=== PATIENT | female | born 1980 | race Caucasian/White ===

== ENCOUNTER 2017-08-02 07:00 | Observation (INO) | payer MEDICAID ==
[~2017-08-02] VITALS: Ht 170.2 cm; Wt 65.0 kg
[~2017-08-02 07:00] MED LIST: MACR100C PO; PREN0.01 PO; ZOFR4TAB3 SL
[2017-08-02 07:07] VITALS: BP 138/82; PULSE 73; RESP 16; TEMP 97.7; O2SAT 97
[2017-08-02] MEDS ORDERED: SODIUM CHLOR 0.9% 1000 ML INJ 1,000 ML IV ONE (07:29)
[2017-08-02 07:40] VITALS: O2SAT 100
--- NOTE | 2017-08-02 07:44 | PD ---
HPI Chief Complaint: Dizziness Time Seen by Provider: 07:29 Travel History International Travel<30 days: No Contact w/Intl Traveler<30days: No Traveled to known affect area: No History of Present Illness HPI 37 years old female complaining of left side of weakness. Patient states that she has left-sided neck pain left shoulder pain for the past 2 weeks. Patient has been taking ibuprofen for the pain. Patient states the pain is sharp pain burning pain radiated to the left side of the base of the skull. Patient denies any recent injury to the neck area or shoulder area. Patient states that she woke up this morning with left-sided weakness. Patient states that she was walking and leaning over to the left side. Patient states that she has trouble opening the door with her left hand. Patient states that she was driving with her right hand. Patient states that she has mild aching headache. Patient states that she has increasing blurred vision on the right eye. Patient denies any chest pain or shortness of breath. Patient denies abdominal pain. Patient states that the weakness including left arm and left leg. Patient denies any numbness. Patient denies history hypertension, diabetes, hyperlipidemia. Patient with smoking many years ago. Patient denies any alcohol or illicit drug abuse. Patient denies any history of TIA or CVA. Patient is not on any control pills. Patient states that she went to bed around 11:00 last night with normal strength of the extremity. PFSH Past Medical History Hiatal Hernia: Yes ?: Not : 6 Para: 3 Miscarriage: 0 : 2 Past Surgical History Abdominal Surgery: Yes (umbilical HERNIA REPAIR) Other Surgery: Yes Social History Alcohol Use: No Tobacco Use: No Substance Use: No Allergies-Medications (Allergen,Severity, Reaction): Coded Allergies: amoxicillin (Verified Allergy, Severe, Rash, 08/02/17) clarithromycin (Verified Allergy, Severe, Hives, 08/02/17) penicillin G (Verified Allergy, Severe, Rash, 08/02/17) Reported Meds & Prescriptions Reported Meds & Active Scripts Active No Active Prescriptions or Reported Medications Review of Systems General / Constitutional: No: Fever Eyes: No: Visual changes HENT: Positive: Neck Pain, No: Headaches Cardiovascular: No: Chest Pain or Discomfort Respiratory: No: Shortness of Breath Gastrointestinal: No: Abdominal Pain Genitourinary: No: Dysuria Musculoskeletal: No: Pain Skin: No Rash Neurologic: Positive: Weakness Psychiatric: No: Depression Endocrine: No: Polydipsia Hematologic/Lymphatic: No: Easy Bruising Physical Exam Narrative GENERAL: Well-nourished, well-developed patient. SKIN: Focused skin assessment warm/dry. HEAD: Normocephalic. EYES: No scleral icterus. No injection or drainage. Pupils 2 mm equal reactive. NECK: Supple, trachea midline. No JVD or lymphadenopathy. Mild tenderness in palpation left-sided neck area and left shoulder pad area. CARDIOVASCULAR: Regular rate and rhythm without murmurs, gallops, or rubs. RESPIRATORY: Breath sounds equal bilaterally. No accessory muscle use. GASTROINTESTINAL: Abdomen soft, non-tender, nondistended. MUSCULOSKELETAL: No cyanosis, or edema. BACK: Nontender without obvious deformity. No CVA tenderness. Neurologic exam: Patient awake alert oriented 3. Patient has weakness of left arm and left leg. Patient is able to lift left arm left leg off the bed. Patient has drifting of the left arm. Sensory function intact. Visual field intact. Deep tendon reflexes 2+ and equal. Negative Babinski. Data Data Last Documented VS Vital Signs Date Time Temp Pulse Resp B/P (MAP) Pulse Ox O2 Delivery O2 Flow Rate FiO2 08/02/17 07:40 100 Nasal Cannula 2.00 08/02/17 07:07 97.7 73 16 138/82 (100) Orders Orders Diet Npo (08/02/17 Breakfast) Activity Bed Rest (08/02/17 ) Electrocardiogram (08/02/17 ) Prothrombin Time / Inr (Pt) (08/02/17 07:29) Act Partial Throm Time (Ptt) (08/02/17 07:29) Complete Blood Count With Diff (08/02/17 07:29) Fibrinogen (08/02/17 07:29) Ua Includes Microscopic (08/02/17 07:29) Type And Screen (08/02/17 07:29) Ct Brain W/O Iv Contrast(Rout) (08/02/17 ) Chest, Single Ap (08/02/17 ) Cta Brain W Iv Contrast W 3d (08/02/17 07:29) Cta Neck W Iv Contrast W 3d (08/02/17 07:29) Blood Glucose (08/02/17 07:29) Ecg Monitoring (08/02/17 07:29) Neuro Checks Q2HX12,Q4H (08/02/17 07:29) Nursing Bedside Swallow Assess .ONCE (08/02/17 07:29) Iv Access Insert/Monitor (08/02/17 07:29) NPO (08/02/17 07:29) Oximetry (08/02/17 07:29) Resp Oxygen Nc Stroke (08/02/17 ) Sodium Chlor 0.9% 1000 Ml Inj (Ns 1000 M (08/02/17 07:29) Cath For Specimen (08/02/17 07:29) Comprehensive Metabolic Panel (08/02/17 07:44) MDM Medical Decision Making Medical Screen Exam Complete: Yes Emergency Medical Condition: Yes Interpretation(s) EKG shows sinus rhythm nonspecific ST-T wave change. Differential Diagnosis Differential diagnosis including TIA, CVA, neuropathy. Narrative Course 37 years old female with left arm left leg weakness. Patient woke up this morning with that. Last seen normal was 11:00 last night. Normal saline solution 100 cc an hour. Head of bed flat. O2 2 L nasal cannula. Scripts No Active Prescriptions or Reported Meds Henry Stern MD August 02, 2017 07:44
[2017-08-02 07:58] LABS: AUTOMATED NEUTROPHIL # 4.5 TH/MM3 (1.8-7.7); BASOPHIL # 0.1 TH/MM3 (0-0.2); BASOPHIL % 0.8 % (0.0-2.0); EOSINOPHIL # 0.1 TH/MM3 (0-0.4); EOSINOPHIL % 1.5 % (0.0-4.0); HEMATOCRIT 43.5 % (35.0-46.0); HEMOGLOBIN 14.8 GM/DL (11.6-15.3); LYMPH % 30.7 % (9.0-44.0); LYMPHOCYTE # 2.3 TH/MM3 (1.0-4.8); MEAN CELL VOLUME 79.5 FL (80.0-100.0); MEAN CORPUSCULAR HEMOGLOBIN 27.1 PG (27.0-34.0); MEAN CORPUSCULAR HGB CONC 34.1 % (32.0-36.0); MEAN PLATELET VOLUME 7.3 FL (7.0-11.0); MONO % 5.7 % (0.0-8.0); MONOCYTE # 0.4 TH/MM3 (0-0.9); NEUT % 61.3 % (16.0-70.0); PLATELET COUNT 233 TH/MM3 (150-450); RED BLOOD COUNT 5.47 MIL/MM3 (4.00-5.30); RED CELL DISTRIBUTION WIDTH 13.3 % (11.6-17.2); WHITE BLOOD COUNT 7.4 TH/MM3 (4.0-11.0)
[2017-08-02 08:11] LABS: PROTHROMBIN TIME - PATIENT 10.2 SEC (9.8-11.6)
--- NOTE | 2017-08-02 08:11 | RADRPT ---
EXAM DATE: 08/02/2017 8:08 AM EDT AGE/SEX: 37 years / Female INDICATIONS: Stroke Alert CLINICAL DATA: This is the patient's initial encounter. Patient reports that signs and symptoms have been present for 1 day and indicates a pain score of 0/10. MEDICAL/SURGICAL HISTORY: None. None. COMPARISON: No prior [facility] exams available for comparison. FINDINGS: A single AP view of the chest demonstrates the lungs to be symmetrically aerated without evidence of mass, infiltrate or effusion. The cardiomediastinal contours are unremarkable. Osseous structures a re intact. CONCLUSION: No evidence of acute cardiopulmonary process. Electronically signed by: Manjeet Maguire MD 08/02/2017 8:10 AM EDT
[2017-08-02 08:13] LABS: ALBUMIN 3.9 GM/DL (3.4-5.0); AST (GOT) 13 U/L (15-37); BICARBONATE 26.1 MEQ/L (21.0-32.0); BLOOD UREA NITROGEN 13 MG/DL (7-18); CALCIUM 8.9 MG/DL (8.5-10.1); CHLORIDE 105 MEQ/L (98-107); CREATININE 0.77 MG/DL (0.50-1.00); GLOMERULAR FILTRATION RATE 85 ML/MIN (>89); GLUCOSE,RANDOM 105 MG/DL (74-106); SODIUM (NA) 141 MEQ/L (136-145)
[2017-08-02 08:14] LABS: ALT (GPT) 24 U/L (10-53)
[2017-08-02 08:16] LABS: ALKALINE PHOSPHATASE 64 U/L (45-117); TOTAL BILIRUBIN ADULT 0.5 MG/DL (0.2-1.0); TOTAL PROTEIN 7.3 GM/DL (6.4-8.2)
--- NOTE | 2017-08-02 08:34 | RADRPT ---
EXAM DATE: 08/02/2017 8:25 AM EDT AGE/SEX: 37 years / Female INDICATIONS: Left sided weakness and unsteady gait CLINICAL DATA: This is the patient's initial encounter. Patient reports that signs and symptoms have been present for 1 day and indicates a pain score of 0/10. MEDICAL/SURGICAL HISTORY: None. None. RADIATION DOSE: 36.37 CTDI (mGy) COMPARISON: No prior [facility] exams available for comparison. TECHNIQUE: CT of the head without contrast. Using automated exposure control and adjustment of the mA and/or kV according to patient size, radiation dose was kept as low as reasonably achievable to ob tain optimal diagnostic quality images. FINDINGS: Cerebrum: The ventricles are normal for age. No evidence of midline shift, mass lesion, hemorrhage o r acute infarction. No extraaxial fluid collections are seen. Posterior Fossa: The cerebellum and brainstem are intact. The 4th ventricle is midline. The cerebe llopontine angle is unremarkable. Extracranial: The visualized portion of the orbits is intact. Skull: The calvaria is intact. No evidence of skull fracture. CONCLUSION: 1. No acute intracranial abnormality. Electronically signed by: Amari Medina MD 08/02/2017 8:33 AM EDT
[2017-08-02] MEDS ORDERED: IODIXANOL 320 MG/ML 10 ML VIAL (for Rad CT) IVCONTRAST ONE (08:44)
--- NOTE | 2017-08-02 09:38 | RADRPT ---
EXAM DATE: 08/02/2017 9:31 AM EDT AGE/SEX: 37 years / Female INDICATIONS: Left sided weakness CLINICAL DATA: This is the patient's initial encounter. Patient reports that signs and symptoms have been present for 1 day and indicates a pain score of 0/10. MEDICAL/SURGICAL HISTORY: None. None. RADIATION DOSE: 27.20 CTDI (mGy) ; Combined studies COMPARISON: No prior [facility] exams available for comparison. TECHNIQUE: Volumetric scanning was performed using a multi-row detector CT scanner during bolus infu anna of 97 ml Visipaque 320 (iodixanol) nonionic water-soluble contrast as a cumulative dose for mul tiple exams. The data was post processed with a variety of visualization algorithms including full volume maximum intensity projection, multi-planar sliding thin slab reformation, curved planar reform ation, and surface rendering techniques. Using automated exposure control and adjustment of the mA a nd/or kV according to patient size, radiation dose was kept as low as reasonably achievable to obtain optimal diagnostic quality images. FINDINGS: There is excellent visualization of the major intracranial arteries out to the second-orde r branch vessels. There is no evidence for aneurysm, vessel truncation or stenosis, and no evidence for vascular malformation. There are patent bilateral posterior communicating arteries. CONCLUSION: 1. Unremarkable MRA of the brain. Electronically signed by: Anson Cordero MD 08/02/2017 9:37 AM EDT
[2017-08-02 10:20] VITALS: BP 114/74; PULSE 70; RESP 17; O2SAT 100
--- NOTE | 2017-08-02 11:23 | HHI.HP ---
[facility] Service Family Medicine Primary Care Physician Unknown Admission Diagnosis Diagnoses: International Travel<30 Days: No Contact w/Intl Traveler<30days: No Known Affected Area: No History of Present Illness 37-year-old female presents to the ED with left-sided weakness. Patient states that she woke up at 6:15 AM this morning with an unsteady gait. She reports that she was "walking strange" and felt that her "left side was off-balanced." She states that she felt like she "falling on her left side" and was very disoriented. She endorses weakness in left arm and left leg. She reports that she could not open the door knob. She states that her vision was hazy and fuzzy. She lives with her 16-year-old son who witnessed the event. She states that her son was saying that she was slurring her speech and was not making sense. She became very concerned and drove herself to the ED. She reports driving using only the right side of her body. She reports recently completing a ZPAC for a URI that started 2 weeks ago. She endorses watery, nonbloody diarrhea for the past few days. She also endorses dizziness and BUI associated with left-sided, shooting neck and shoulder pain for the past last 2 weeks. She states the last time she remember being normal was 11 PM before going to bed. She states that one year ago her PCP told her that she had high cholesterol. She denies hypertension diabetes, smoking, oral contraceptive use , prior strokes or MIs. She denies history of migraines or seizures. She denies nausea vomiting, shaking, loss of bowel/bladder control, biting tongue, numbness and tingling. She denies new medication and or illicit drug use. (Marcia Carrillo MD R1) History of Present Illness 37-year-old female presenting to the emergency department with apparent neurologic abnormality. She states that she woke up this morning and felt somewhat dizzy/lightheaded and noticed some left-sided weakness when she tried to get up and walk. She felt that she was leaning to the left and listing to the left while walking. She felt that her left arm and left leg were weaker than her right leg and this was very disorienting to her. She also states that her son told her that she was slurring her speech. She noticed that she was having difficulty grasping objects with her left hand as well. Her last known time of feeling normal was at 1130 on the night previous presenting to the hospital. -She endorses recent URI for which she was treated with a Z-Amador 2 weeks ago, she endorses some headache with left-sided neck pain -She denies chest pain or palpitations, she denies nausea or vomiting, she denies fevers or chills, she denies bowel changes, she denies tinnitus. (Anson London MD) Review of Systems Constitutional: DENIES: Fever, Weight loss, Chills Eyes: DENIES: Eye pain, Vision loss Ears, nose, mouth, throat: COMPLAINS OF: Tinnitus (slight ringing in her R ear ), DENIES: Hearing loss, Throat pain, Running Nose Respiratory: COMPLAINS OF: Cough (light coughing x 2 weeks ), DENIES: Shortness of breath Cardiovascular: DENIES: Chest pain, Palpitations Gastrointestinal: COMPLAINS OF: Diarrhea, DENIES: Abdominal pain, Bloody stools , Nausea, Vomiting Genitourinary: DENIES: Dysuria Musculoskeletal: COMPLAINS OF: Neck pain Integumentary: DENIES: Rash Neurologic: COMPLAINS OF: Abnormal gait, Headache, Localized weakness, Speech Problems, Poor Balance, DENIES: Paresthesias (Marcia Carrillo MD R1) Past Family Social History Past Medical History Depression Anxiety Past Surgical History L Foot surgery- 17 years ago Umbical hernia-6 years ago (Marcia Carrillo MD R1) Allergies: Coded Allergies: amoxicillin (Verified Allergy, Severe, Rash, 08/02/17) clarithromycin (Verified Allergy, Severe, Hives, 08/02/17) penicillin G (Verified Allergy, Severe, Rash, 08/02/17) Family History Mom- NM 36 or 37- at 42-Crohn's disease Dad-cirrhosis, HD- 50 Hyperlipidemia Social History Moved back from [place] two months ago Goes to the [facility] Lives with 16 yr old son Denies smoking Denies alcohol use Denies illicit drug use (Marcia Carrillo MD R1) Physical Exam Vital Signs Vital Signs Date Time Temp Pulse Resp B/P (MAP) Pulse Ox O2 Delivery O2 Flow Rate FiO2 08/02/17 10:20 70 17 114/74 (87) 100 Nasal Cannula 1.00 08/02/17 07:40 100 Nasal Cannula 2.00 08/02/17 07:40 100 Nasal Cannula 2.00 08/02/17 07:07 97.7 73 16 138/82 (100) 97 Physical Exam GENERAL: This is a well-nourished, well-developed patient, in no apparent distress. SKIN: No rashes, ecchymoses or lesions. Cool and dry. HEAD: Atraumatic. Normocephalic. No temporal or scalp tenderness. EYES: Pupils equal round and reactive. Extraocular motions intact. No scleral icterus. No injection or drainage. ENT: Nose without bleeding, purulent drainage or septal hematoma. Throat without erythema, tonsillar hypertrophy or exudate. Uvula midline. Airway patent. NECK: Trachea midline. No JVD or lymphadenopathy. Supple, nontender, no meningeal signs. CARDIOVASCULAR: Regular rate and rhythm without murmurs, gallops, or rubs. RESPIRATORY: Clear to auscultation. Breath sounds equal bilaterally. No wheezes , rales, or rhonchi. GASTROINTESTINAL: Abdomen soft, non-tender, nondistended. No hepato-splenomegaly , or palpable masses. No guarding. MUSCULOSKELETAL: Extremities without clubbing, cyanosis, or edema. No joint tenderness, effusion, or edema noted. No calf tenderness. Negative Homans sign bilaterally. NEUROLOGICAL: Awake and alert. Cranial nerves II through XII intact. Motor and sensory grossly within normal limits. Slight weakness in left arm, otherwise strength 5/5 in all other extremities. Normal speech. Negative Pronator dift test. Laboratory Laboratory Tests Test 08/02/17 07:10 White Blood Count 7.4 Red Blood Count 5.47 Hemoglobin 14.8 Hematocrit 43.5 Mean Corpuscular Volume 79.5 Mean Corpuscular Hemoglobin 27.1 Mean Corpuscular Hemoglobin Concent 34.1 Red Cell Distribution Width 13.3 Platelet Count 233 Mean Platelet Volume 7.3 Neutrophils (%) (Auto) 61.3 Lymphocytes (%) (Auto) 30.7 Monocytes (%) (Auto) 5.7 Eosinophils (%) (Auto) 1.5 Basophils (%) (Auto) 0.8 Neutrophils # (Auto) 4.5 Lymphocytes # (Auto) 2.3 Monocytes # (Auto) 0.4 Eosinophils # (Auto) 0.1 Basophils # (Auto) 0.1 CBC Comment DIFF FINAL Differential Comment Prothrombin Time 10.2 Prothromb Time International Ratio 1.0 Activated Partial Thromboplast Time 26.4 Fibrinogen 229 Blood Urea Nitrogen 13 Creatinine 0.77 Random Glucose 105 Total Protein 7.3 Albumin 3.9 Calcium Level 8.9 Alkaline Phosphatase 64 Aspartate Amino Transf (AST/SGOT) 13 Alanine Aminotransferase (ALT/SGPT) 24 Total Bilirubin 0.5 Sodium Level 141 Potassium Level 3.4 Chloride Level 105 Carbon Dioxide Level 26.1 Anion Gap 10 Estimat Glomerular Filtration Rate 85 (Marcia Carrillo MD R1) Physical Exam General: Well-developed female lying in bed, no obvious distress HEENT: PERRLA, cranial nerves II through XII intact, no obvious facial abnormality or asymmetry, speech is normal CV: Regular rate and rhythm without murmur Pulmonary: Clear to auscultation bilaterally Neuro: Awake and alert. Cranial nerves II through XII intact. Negative pronator drift. Normal cerebellar testing with hand flapping and heel to dc. 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 (Anson London MD) Result Diagram: 08/02/17 0710 08/02/17 0710 Septic Shock Reassessment Septic shock perfusion: reassessment completed (Marcia Carrillo MD R1) Caprini VTE Risk Assessment Caprini VTE Risk Assessment: No/Low Risk (score <= 1) Caprini Risk Assessment Model Point Value = 1 Point Value = 2 Point Value = 3 Point Value = 5 Age 41-60 Minor surgery BMI > 25 kg/m2 Swollen legs Varicose veins or History of unexplained or recurrent spontaneous Oral contraceptives or hormone replacement Sepsis (< 1 month) Serious lung disease, including pneumonia (< 1 month) Abnormal pulmonary function Acute myocardial infarction Congestive heart failure (< 1 month) History of inflammatory bowel disease Medical patient at bed rest Age 61-74 Arthroscopic surgery Major open surgery (> 45 min) Laparoscopic surgery (> 45 min) Malignancy Confined to bed (> 72 hours) Immobilizing plaster cast Central venous access Age >= 75 History of VTE Family history of VTE Factor V Leiden Prothrombin [id number] Lupus anticoagulant Anticardiolipin antibodies Elevated serum homocysteine Heparin-induced thrombocytopenia Other congenital or acquired thrombophilia Stroke (< 1 month) Elective arthroplasty Hip, pelvis, or leg fracture Acute spinal cord injury (< 1 month) Prophylaxis Regimen Total Risk Factor Score Risk Level Prophylaxis Regimen 0-1 Low Early ambulation 2 Moderate Order ONE of the following: *Sequential Compression Device (SCD) *Heparin 5000 units SQ BID 3-4 Higher Order ONE of the following medications: *Heparin 5000 units SQ TID *Enoxaparin/Lovenox 40 mg SQ daily (WT < 150 kg, CrCl > 30 mL/min) *Enoxaparin/Lovenox 30 mg SQ daily (WT < 150 kg, CrCl > 10-29 mL/min) *Enoxaparin/Lovenox 30 mg SQ BID (WT < 150 kg, CrCl > 30 mL/min) AND/OR *Sequential Compression Device (SCD) 5 or more Highest Order ONE of the following medications: *Heparin 5000 units SQ TID (Preferred with Epidurals) *Enoxaparin/Lovenox 40 mg SQ daily (WT < 150 kg, CrCl > 30 mL/min) *Enoxaparin/Lovenox 30 mg SQ daily (WT < 150 kg, CrCl > 10-29 mL/min) *Enoxaparin/Lovenox 30 mg SQ BID (WT < 150 kg, CrCl > 30 mL/min) AND *Sequential Compression Device (SCD) (Marcia Carrillo MD R1) Assessment and Plan Assessment and Plan 37-year-old female presents to the ED with left-sided weakness. Admitted for stroke workup. Code Status Full Code (Marcia Carrillo MD R1) Problem List: (1) TIA (transient ischemic attack) ICD Codes: G45.9 - Transient cerebral ischemic attack, unspecified Plan: Left-sided weakness most likely due to TIA Labs: WBC wnl CMP, slight hypokalemia at 3.4, LFTS wnl, random glucose of 105 Lipid panel pending A1c pending TSH pending UDS pending CXR negative Imaging: Echo 2D complete with doppler pending Head CT demonstrates no acute intracranial abnormality Neck CTA pending Head CTA unremarkable Brain MRI negative N.p.o. until patient passes bedside swallow test Normal saline 100mls/hr Aspirin 325 p.o. daily Neuro checks every 4 Cardiac monitoring and telemetry PT, OT consulted (2) Nutrition, metabolism, and development symptoms ICD Codes: R63.8 - Other symptoms and signs concerning food and fluid intake Plan: Diet: N.p.o. until patient passes bedside swallow test Fluid: 100mls/hr Neuro checks every 4, vitals every 4, monitor I's and O's Case management consulted (Marcia Carrillo MD R1) Problem List: (1) TIA (transient ischemic attack) ICD Codes: G45.9 - Transient cerebral ischemic attack, unspecified Plan: Left-sided weakness most likely due to TIA versus migraine variant versus seizure variant Labs: WBC wnl CMP, slight hypokalemia at 3.4, LFTS wnl, random glucose of 105 Lipid panel pending A1c pending TSH pending UDS pending CXR negative Imaging: Echo 2D complete with doppler pending Head CT demonstrates no acute intracranial abnormality Neck CTA pending Head CTA unremarkable Brain MRI negative N.p.o. until patient passes bedside swallow test Normal saline 100mls/hr Aspirin 325 p.o. daily Neuro checks every 4 Cardiac monitoring and telemetry PT, OT consulted (2) Nutrition, metabolism, and development symptoms ICD Codes: R63.8 - Other symptoms and signs concerning food and fluid intake Plan: Diet: N.p.o. until patient passes bedside swallow test Fluid: 100mls/hr Neuro checks every 4, vitals every 4, monitor I's and O's Case management consulted (Anson London MD) Physician Certification 2 Midnight Certification Type: Admission for Inpatient Services Order for Inpatient Services The services are ordered in accordance with Medicare regulations or non- Medicare payer requirements, as applicable. In the case of services not specified as inpatient-only, they are appropriately provided as inpatient services in accordance with the 2-midnight benchmark. Estimated LOS (days): 2 2 days is the estimated time the patient will need to remain in the hospital, assuming treatment plan goals are met and no additional complications. Post-Hospital Plan: Home (Marcia Carrillo MD R1) Marcia Carrillo MD R1 August 02, 2017 11:23 Anson London MD August 02, 2017 14:24
[2017-08-02] MEDS: SODIUM CHLORIDE 0.9% FLUSH 10 ML FLUSH IV FLUSH SCH ×2 (11:45→21:00)
[2017-08-02] MEDS ORDERED: SODIUM CHLORIDE 0.9% FLUSH 10 ML FLUSH IV FLUSH PRN ×2 (11:45→12:45)
--- NOTE | 2017-08-02 11:58 | RADRPT ---
EXAM DATE: 08/02/2017 11:52 AM EDT AGE/SEX: 37 years / Female INDICATIONS: Left sided weakness. CLINICAL DATA: This is the patient's initial encounter. Patient reports that signs and symptoms have been present for 1 day and indicates a pain score of 0/10. MEDICAL/SURGICAL HISTORY: None. Inguinal hernia repair. COMPARISON: [facility] [place], CT BRAIN W/O CONTRAST, 08/02/2017. . TECHNIQUE: Multiplanar, multisequence examination of the brain was performed without contrast. FINDINGS: Cerebrum: The ventricles are normal for age. No evidence of midline shift, mass lesion, hemorrhage or acute infarction. No extraaxial fluid collections are seen. The pituitary gland and suprasellar cistern are normal in configuration. White Matter: No significant signal abnormalities are seen in the white matter. Posterior Fossa: The cerebellum and brainstem are intact. The 4th ventricle is midline. The cerebel lopontine angle is unremarkable. The cerebellar tonsils are normal in position. Diffusion Imaging: No focal areas of restricted diffusion are seen. No evidence of acute infarction . Extracranial: The visualized portions of the orbits and paranasal sinuses are unremarkable. CONCLUSION: Negative MRI examination of the head. Electronically signed by: Víctor Corado MD 08/02/2017 11:57 AM EDT
[2017-08-02] MEDS ORDERED: SODIUM CHLORIDE 0.9% FLUSH 10 ML FLUSH IV FLUSH SCH (12:45)
[2017-08-02] MEDS ORDERED: GLUCAGON 1 MG/ML VIAL OTHER PRN (12:45)
[2017-08-02] MEDS ORDERED: DEXTROSE 50% IN WATER 50 ML VIAL(D50) IV PUSH PRN (12:45)
[2017-08-02] MEDS: SODIUM CHLOR 0.9% 1000 ML INJ 1,000 ML IV SCH (13:00)
[2017-08-02 13:24] LABS: BILIRUBIN, URINE NEG (NEG); BLOOD, URINE NEG (NEG); GLUCOSE,URINE NEG (NEG); KETONE, URINE NEG (NEG); MUCUS URINE FEW /lpf (OCC); NITRITE,URINE NEG (NEG); PH, URINE 6.5 (5.0-8.5); SQUAMOUS EPITHELIAL CELL URINE 1 /hpf (0-5); URINE COLOR YELLOW (YELLW/STRAW); URINE LEUKOCYTE ESTERASE NEG (NEG)
--- NOTE | 2017-08-02 14:00 | EKG ---
Date Performed: 08/02/2017 Time Performed: 07:22:19 PTAGE: 37 years EKG: Baseline artifact present Sinus rhythm probably NORMAL ECG NO PREVIOUS TRACING DOCTOR: Rashel Herron Interpretating Date/Time 08/02/2017 13:59:01
[2017-08-02] MEDS: ASPIRIN 325 MG TAB PO SCH (14:27)
[2017-08-02] MEDS: HEPARIN SODIUM - SQ 10,000 UNITS/ML VIAL SQ SCH ×2 (14:28→20:56)
[2017-08-02 16:00] VITALS: BP 127/78; PULSE 67; RESP 18; TEMP 98.6; O2SAT 98
[2017-08-02] MEDS: INSULIN ASPART SUPPLEMENTAL SCALE SQ SCH ×2 (17:00→21:00)
[2017-08-02 17:21] LABS: HEMOGLOBIN A1C 4.8 % (4.3-6.0)
[2017-08-02] MEDS ORDERED: ACETAMINOPHEN/HYDROcodone 325 MG/5 MG TAB PO PRN (19:00)
[2017-08-02 19:24] VITALS: BP 120/67; PULSE 79; RESP 18; TEMP 97.9; O2SAT 97
[2017-08-02 20:00] VITALS: PULSE 82
--- NOTE | 2017-08-02 20:10 | RADRPT ---
EXAM DATE: 08/02/2017 8:16 AM EDT AGE/SEX: 37 years / Female INDICATIONS: Left sided weakness CLINICAL DATA: This is the patient's initial encounter. Patient reports that signs and symptoms have been present for 1 day and indicates a pain score of 0/10. MEDICAL/SURGICAL HISTORY: None. None. RADIATION DOSE: 27.20 CTDI (mGy) ; Combined studies COMPARISON: No prior [facility] exams available for comparison. TECHNIQUE: Volumetric scanning was performed using a multirow detector CT scanner during bolus infus ion of 97 ml Visipaque 320 (iodixanol) nonionic water-soluble contrast as a cumulative dose for mult iple exams. The data was postprocessed with a variety of visualization algorithms including full-vo lume maximum intensity projection, multiplanar sliding thin-slab reformation, curved-planar reformati on, and surface-rendering techniques. Using automated exposure control and adjustment of the mA and/ or kV according to patient size, radiation dose was kept as low as reasonably achievable to obtain op timal diagnostic quality images. FINDINGS: Aortic Arch: There is two-vessel bovine type arch anatomy. No evidence of ostial narrowing Right Carotid: The common carotid artery is intact. The carotid bulb has a normal configuration wit hout ulceration or narrowing. Proximal cervical segment of the internal carotid artery is tortuous bu t otherwise patent. No significant flow-limiting stenosis. The external carotid artery is intact. Left Carotid: The common carotid artery is intact. The carotid bulb has a normal configuration with out ulceration or narrowing. The internal carotid artery lumen is smooth without stenosis. The exte rnal carotid artery is intact. Vertebrals: Dominant right vertebral artery. Diffusely small caliber left vertebral artery is not vi sualized beyond the mid cervical region and reconstitutes distally near the vertebrobasilar junction. General Findings: Lung apices are clear. Thyroid is unremarkable by CT. No significant adenopathy. Elevated flow velocities and ICA/CCA ratios have been found to correlate with increased degrees of ve ssel stenosis, calculated as percentage of diameter relative to a normal segment of distal ICA/CCA. CONCLUSION: 1. No significant carotid flow-limiting stenosis. 2. 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 Electronically signed by: Amari Medina MD 08/02/2017 8:08 PM EDT
[2017-08-02] MEDS: IBUPROFEN 400 MG TAB PO PRN (21:04)
[2017-08-03] VITALS (7 sets, daily range): BP systolic 108–118; BP diastolic 55–75; PULSE 58–70; RESP 18; TEMP 98.3–98.6; O2SAT 97–98
[2017-08-03] MEDS: SODIUM CHLOR 0.9% 1000 ML INJ 1,000 ML IV SCH ×2 (01:27→08:43)
[2017-08-03] MEDS: IBUPROFEN 400 MG TAB PO PRN (04:46)
[2017-08-03] MEDS: HEPARIN SODIUM - SQ 10,000 UNITS/ML VIAL SQ SCH ×2 (04:48→14:01)
[2017-08-03 07:41] LABS: CHOLESTEROL/ HDL RATIO 5.1 RATIO; HDL CHOLESTEROL 29.4 MG/DL (40.0-60.0)
[2017-08-03 07:44] LABS: HEMATOCRIT 37.6 % (35.0-46.0); HEMOGLOBIN 13.1 GM/DL (11.6-15.3); MEAN CELL VOLUME 79.9 FL (80.0-100.0); MEAN CORPUSCULAR HEMOGLOBIN 27.8 PG (27.0-34.0); MEAN CORPUSCULAR HGB CONC 34.7 % (32.0-36.0); MEAN PLATELET VOLUME 7.3 FL (7.0-11.0); PLATELET COUNT 188 TH/MM3 (150-450); RED CELL DISTRIBUTION WIDTH 13.1 % (11.6-17.2); WHITE BLOOD COUNT 5.7 TH/MM3 (4.0-11.0)
[2017-08-03 08:11] LABS: BICARBONATE 27.1 MEQ/L (21.0-32.0); CREATININE 0.75 MG/DL (0.50-1.00)
[2017-08-03] MEDS: INSULIN ASPART SUPPLEMENTAL SCALE SQ SCH ×2 (08:42→12:21)
[2017-08-03] MEDS: SODIUM CHLORIDE 0.9% FLUSH 10 ML FLUSH IV FLUSH SCH (08:43)
[2017-08-03] MEDS: ASPIRIN 325 MG TAB PO SCH (08:43)
--- NOTE | 2017-08-03 09:57 | HHI.FPPN ---
Subjective Remarks No acute events overnight. Patient lying in bed watching TV. Patient reports doing well this morning. She states that she has full function of her left side. she is able to get up and walk to the bathroom. She still endorses residual decreased gis manager strength in her left hand. She is eating well. Vital signs are stable. No other complaints. (Marcia Carrillo MD R1) Objective Vitals Vital Signs Date Time Temp Pulse Resp B/P (MAP) Pulse Ox O2 Delivery O2 Flow Rate FiO2 08/03/17 05:28 98.5 63 18 109/55 (73) 98 08/03/17 04:00 61 08/03/17 00:13 58 08/03/17 00:10 98.5 70 18 117/69 (85) 97 08/02/17 20:00 82 08/02/17 19:24 97.9 79 18 120/67 (84) 97 08/02/17 16:00 98.6 67 18 127/78 (94) 98 08/02/17 15:20 08/02/17 10:20 70 17 114/74 (87) 100 Nasal Cannula 1.00 I/O 08/02/17 08/02/17 08/02/17 08/03/17 08/03/17 08/03/17 07:00 15:00 23:00 07:00 15:00 23:00 Intake Total 1449 ml Output Total 1 ml Balance -1 ml 1449 ml Intake IV Total 1449 ml Output Urine Total 1 ml # Voids 1 (Marcia Carrillo MD R1) Result Diagram: 08/03/17 0725 08/03/17 0629 Objective Remarks GENERAL: This is a well-nourished, well-developed patient, in no apparent distress. EYES: Pupils equal round and reactive. Extraocular motions intact. No scleral icterus. No injection or drainage. CARDIOVASCULAR: Regular rate and rhythm without murmurs, gallops, or rubs. RESPIRATORY: Clear to auscultation. Breath sounds equal bilaterally. No wheezes , rales, or rhonchi. GASTROINTESTINAL: Abdomen soft, non-tender, nondistended. No hepato-splenomegaly , or palpable masses. No guarding. MUSCULOSKELETAL: Extremities without clubbing, cyanosis, or edema. No joint tenderness, effusion, or edema noted. No calf tenderness. Negative Homans sign bilaterally. NEUROLOGICAL: Awake and alert. Cranial nerves II through XII intact. Motor and sensory grossly within normal limits. Slight left gis manager strength, otherwise strength 5/5 in all other extremities. Normal [id number] test. Normal speech. Negative Pronator dift test. (Marcia Carrillo MD R1) A/P Assessment and Plan 37-year-old female presents to the ED with left-sided weakness, admitted for TIA. (Marcia Carrillo MD R1) Attending Attestation Patient examined independently and case discussed with resident physicians I have read the above note and agree with the assessment/plan as discussed with me I was involved in all medical decision making for this patient Anson London MD (Anson London MD) Problem List: (1) TIA (transient ischemic attack) ICD Codes: G45.9 - Transient cerebral ischemic attack, unspecified Plan: Left-sided weakness most likely due to TIA versus migraine variant versus seizure variant Patient with slight residual weakness with left gis manager strength. OT pending for discharge recommendations. Advised patient to take daily aspirin 325 P.O daily Echo pending Labs: WBC wnl CMP wnl Lipid panel, cholesterol 150, LDL 81, HDL 29.4, TG 197 A1c 4.8% TSH 2.270 UDS negative CXR negative Imaging: Echo 2D complete with doppler pending Head CT demonstrates no acute intracranial abnormality Neck CTA no significant carotid flow-limiting stenosis. 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 Head CTA unremarkable Brain MRI negative (2) Nutrition, metabolism, and development symptoms ICD Codes: R63.8 - Other symptoms and signs concerning food and fluid intake Plan: Diet: Regular Fluid: PO hydration Neuro checks every 4, vitals every 4, monitor I's and O's Case management consulted (Marcia Carrillo MD R1) Marcia Carrillo MD R1 August 03, 2017 09:57 Anson London MD August 03, 2017 11:12
[2017-08-03] MEDS ORDERED: ASA325 PO (09:58)
--- NOTE | 2017-08-03 09:58 | HHI.DCPOC ---
Discharge Care Plan Diagnosis: (1) TIA (transient ischemic attack) Goals to Promote Your Health * To prevent worsening of your condition and complications * To maintain your health at the optimal level Directions to Meet Your Goals Take your medications as prescribed Follow your dietary instruction Follow activity as directed Keep your appointments as scheduled Take your immunizations and boosters as scheduled If your symptoms worsen call your PCP, if no PCP go to Urgent Care Center or Emergency Room Smoking is Dangerous to Your Health. Avoid second hand smoke Call the 24-hour hour crisis hotline for domestic abuse at Marcia Carrillo MD R1 August 03, 2017 09:58
[2017-08-03] MEDS ORDERED: CALCIUM CARBONATE 500 MG CHEWABLE TAB CHEW ONE (10:15)
--- NOTE | 2017-08-03 17:21 | ECHRPT ---
Indication: CVA/TIA CONCLUSIONS Normal left ventricular size. Wall thickness is normal. The left ventricular systolic function is low normal with an estimated ejection fraction in the rang e of 50- 55%. BP: / HR: Rhythm: MEASUREMENTS (Male / Female) Normal Values Technical Quality: 2D ECHO LV Diastolic Diameter PLAX 4.6 cm 4.2 - 5.9 / 3.9 - 5.3 cm LV Systolic Diameter PLAX 3.5 cm IVS Diastolic Thickness 1.2 cm 0.6 - 1.0 / 0.6 - 0.9 cm LVPW Diastolic Thickness 0.8 cm 0.6 - 1.0 / 0.6 - 0.9 cm LV Relative Wall Thickness 0.4 RV Internal Dim ED PLAX 2.1 cm LA Systolic Diameter LX 3.0 cm 3.0 - 4.0 / 2.7 - 3.8 cm DOPPLER Mitral E Point Velocity 66.6 cm/s Mitral A Point Velocity 53.8 cm/s Mitral E to A Ratio 1.2 TR Peak Velocity 211.0 cm/s TR Peak Gradient 17.8 mmHg Right Atrial Pressure 5.0 mmHg Pulmonary Artery Systolic Pressu 22.8 mmHg Right Ventricular Systolic Press 22.8 mmHg FINDINGS LEFT VENTRICLE Normal left ventricular size. Wall thickness is normal. The left ventricular systolic function is low normal with an estimated ejection fraction in the rang e of 50- 55%. RIGHT VENTRICLE Normal right ventricular size and systolic function. LEFT ATRIUM The left atrial size is normal. RIGHT ATRIUM The right atrial size is normal. ATRIAL SEPTUM Normal atrial septal thickness without atrial level shunting by limited color doppler interrogation. AORTA The aortic root and proximal ascending aorta are normal in size on limited imaging. MITRAL VALVE Structurally normal mitral valve. No mitral valve stenosis or regurgitation. AORTIC VALVE Trileaflet aortic valve. No aortic valve stenosis or regurgitation. TRICUSPID VALVE Structurally normal tricuspid valve. No tricuspid valve stenosis or regurgitation. PULMONARY VALVE No pulmonary valve regurgitation or stenosis. VESSELS The inferior vena cava is normal in size. PERICARDIUM No pericardial effusion. Franck Rosenthal MD, FACC, [facility] [place] (Electronically Signed) Final Date:03 Aug 2017 17:20
== END 2017-08-03 16:50 | disposition home or self-care (01) ==
LOC: NEPC 07:00 → NEDA 11:32 → INTOOBSV 11:32 → N05B 14:46
PROVIDERS: ADMIT Family Medicine; ATTEND Family Medicine
DX: G45.9 Transient cerebral ischemic attack, unspecified (principal); R63.8 Other symptoms and signs concerning food and fluid intake; E78.00 Pure hypercholesterolemia, unspecified; M54.2 Cervicalgia; M25.512 Pain in left shoulder; H53.8 Other visual disturbances
CPT/HCPCS: 70450; 70496; 70498; 70551; 71045; 80048; 80053; 80061; 80307; 81001; 82948; 83036; 84443; 85025; 85027; 85384; 85610; 85730; 86850; 86900; 86901; 92610; 93005; 93306; 96360; 96361; 97163; 97166; 97535; 99285; G0378; G8987; G8988; G8996; G8997; G8998; J1644; J7030; Q9967